=== PATIENT | female | born 1985 | race African-American/Black ===

== ENCOUNTER 2020-01-03 08:21 | Emergency (ER) | payer SELFPAY ==
[~2020-01-03] VITALS: Ht 152.4 cm; Wt 51.0 kg
[2020-01-03 09:20] VITALS: BP 129/63
--- NOTE | 2020-01-03 09:37 | PHYS DOC ---
Past Medical History Past Medical History: Ectopic Additional Past Medical Histor: PREVIOUS MISCARRIAGES, STILLBORN Past Surgical History: Oophorectomy Additional Past Surgical Histo: REMOVAL OF LEFT TUBE AND ECTOPIC LEFT TUBE; right salphigectomy Smoking Status: Current Every Day Smoker Alcohol Use: Occasionally Drug Use: Marijuana General Adult EDM: Chief Complaint: BREAST PROBLEM HPI: HPI: 34-year-old female presents with report of lump to her right breast behind her nipple which she noticed today. Patient does report some discomfort to her breast last night but only noticed the lump when she got in the shower today. Denies any nipple discharge. Denies fever or chills. Denies trauma. Denies redness. Review of Systems: Review of Systems: Constitutional: Denies fever or chills Eyes: Denies redness or eye pain HENT: Denies nasal congestion or sore throat Respiratory: Denies cough or shortness of breath Cardiovascular: Denies chest pain or palpitations GI: Denies abdominal pain, nausea, or vomiting : Denies dysuria or hematuria Musculoskeletal: Denies back pain or joint pain Integument: Denies rash; reports mass behind right breast Neurologic: Denies headache, focal weakness or sensory changes Complete systems were reviewed and found to be within normal limits, except as documented in this note. Allergies: Allergies: Allergies Coded Allergies Type Severity Reaction Last Updated Verified Penicillins Allergy Intermediate Rash 10/25/14 Yes Physical Exam: PE: Constitutional: Well developed, well nourished, no acute distress, non-toxic appearance HENT: Normocephalic, atraumatic Eyes: Conjunctiva normal, no discharge Neck: Normal range of motion, supple Breast: Maternity Nurse RN, right breast with hard mass noted behind nipple measuring approximately 3cm x 3cm, patient reports tender to palpation, no fluctuance, no drainage from nipple, no puckering of skin Lungs & Thorax: No respiratory distress, equal chest rise and fall Skin: Warm, dry, no erythema, no rash Extremities: No tenderness, ROM intact, no edema Neurologic: Alert and oriented X 3, no focal deficits noted Psychologic: Affect normal, judgment normal EKG: EKG: [] Radiology/Procedures: Radiology/Procedures: [] Course & Med Decision Making: Course & Med Decision Making Patient presents with report of finding tender right breast mass today in the shower. Denies known trauma. Reports had started to hurt last night but did not notice the mass until today. No erythema noted. No drainage from nipple noted. Patient advised that she would need to follow with a free clinic and or PCP for mammography in order to further characterize mass. [facility] pay medical screening exam signed. Patient stable for discharge with outpatient follow-up with PCP/clinic. Free clinic resource sheet provided. Discussed findings and plan with patient, who acknowledges understanding and agreement. Lluvia Disclaimer: Lluvia Disclaimer: This electronic medical record was generated, in whole or in part, using a voice recognition dictation system. Departure Departure Impression: Primary Impression: Breast lump in female Disposition: 01 HOME, SELF-CARE Condition: STABLE Referrals: NO PCP (PCP) Patient Instructions: Breast Self-Exam, [id number], Breast Tenderness Additional Instructions: You had found a breast lump today that will require further evaluation such as mammography. Please call and make an appointment to be seen by your primary care provider or a clinic to schedule this testing. Justicifation of Admission Dx: Justifications for Admission: Justification of Admission Dx: N/A SALVADOR KING DO Jan 03, 2020 09:37
== END 2020-01-03 10:23 | disposition home or self-care (01) ==
LOC: ER 08:21
DX: N63.10 Unspecified lump in the right breast, unspecified quadrant (principal); F17.200 Nicotine dependence, unspecified, uncomplicated; Z88.0 Allergy status to penicillin
CPT/HCPCS: 99281